=== PATIENT | female | born 1955 | race African-American/Black ===

== ENCOUNTER 2024-06-12 13:26 | Inpatient (IN) | payer MEDICAID, SELFPAY ==
[2024-06-12] VITALS (33 sets, daily range): BP systolic 124–169; BP diastolic 78–98; PULSE 68–120; TEMP 36.7–37.4; O2SAT 91–100; BMI 42.5; BMI 40.5
--- NOTE | 2024-06-12 13:31 | ECG_ITS ---
[facility] Test Date: 2024-06-12 Pat Name: BERTO NOYOLA Department: Room: - Gender: Female Scanning Coordinator: : 1955 Requested By: [id number] Order Number: [id number] Reading MD: SID FRANCOIS M.D. Measurements Intervals [place] Rate: 70 P: 57 WI: 240 QRS: -34 QRSD: 116 T: 90 QT: 396 QTc: 416 Interpretive Statements 1100 Sinus rhythm 2231 First degree AV block 2320 Nonspecific intraventricular conduction delay 4564 Twave abnormality, possible lateral ischemia 7200 Abnormal left axis deviation 9150 abnormal ECG No previous ECG available for comparison Electronically Signed On 06-12-2024 17:48:31 EST by SID FRANCOIS M.D.
--- NOTE | 2024-06-12 13:36 | ED_ITS ---
HPI HPI - General Adult General Chief complaint: Extremity Injury, Lower Stated complaint: weakness Time Seen by Provider: 06/12/24 13:31 Source: patient Mode of arrival: ambulance Limitations: no limitations History of Present Illness HPI narrative: Patient is a 69-year-old female brought to the emergency department by EMS from [place] where she is currently staying with her daughter. She was moved to her daughter's home 1 month ago from the [facility] because the patient was having mobility issues. She had a fall at home about 1 month ago where her feet curled underneath her and she states she has had persistent pain in the feet and legs since the fall. She was never evaluated for the fall and has continued to have difficulty transferring and walking. She states until 3 days ago she was able to manage but for the last several days, she has not been able to walk. She does not believe she hit her head or got knocked out. She is on no blood thinners. She states she takes lisinopril. She has not had any fevers, chest pain, shortness of breath. She reports feeling generally weak. Related Data Home Medications ?Medication ?Instructions ?Recorded ?Confirmed abacavir 600 mg-dolutegravir 50 1 tab PO DAILY 06/12/24 06/12/24 mg-lamivudine 300 mg tablet (Triumeq) acetaminophen 325 mg tablet (Pain 650 mg PO BID PRN pain 06/12/24 06/12/24 Reliever (acetaminophen)) aspirin 81 mg capsule 81 mg PO DAILY 06/12/24 06/12/24 carvedilol 3.125 mg tablet 3.125 mg PO BID 06/12/24 06/12/24 cholecalciferol (vitamin D3) 50 50 mcg PO DAILY 06/12/24 06/12/24 mcg (2,000 unit) capsule (Vitamin D3) furosemide 20 mg tablet 20 mg PO DAILY 06/12/24 06/12/24 gabapentin 300 mg capsule 300 mg PO TID 06/12/24 06/12/24 losartan 50 mg tablet (Cozaar) 25 mg PO DAILY 06/12/24 06/12/24 melatonin 10 mg capsule 10 mg PO BEDTIME 06/12/24 06/12/24 omeprazole 20 mg capsule,delayed 20 mg PO DAILY 06/12/24 06/12/24 release pravastatin 80 mg tablet 80 mg PO DAILY 06/12/24 06/12/24 spironolactone 25 mg tablet 25 mg PO DAILY 06/12/24 06/12/24 (Aldactone) Allergies Allergy/AdvReac Type Severity Reaction Status Date / Time sulfamethoxazole (From Allergy Severe Hives Verified 06/12/24 13:34 Bactrim) trimethoprim (From Bactrim) Allergy Severe Hives Verified 06/12/24 13:34 Opioid HPI Opioid Management Most Recent Opioid Data: No Data to Display Review of Systems ROS Constitutional Denies: fever or chills Ears, nose, mouth, and throat Denies: throat pain or nasal congestion Cardiovascular Denies: chest pain Respiratory Denies: shortness of breath Gastrointestinal Denies: nausea or vomiting Integumentary/Breast Denies: rash Neurological Reports: weakness in extremities; Denies: headache, numbness in extremities or dizziness Hematologic/Lymphatic Denies: easy bruising or easy bleeding PFSH PFS Social History Little interest or pleasure in doing things: not at all Feeling down, depressed, or hopeless: not at all Exam Narrative Exam Narrative: Gen.: Awake, alert, in no distress Head: Normocephalic, atraumatic ENT: Moist mucous membranes Respiratory: No respiratory distress, lungs clear bilaterally Cardio: Regular rate and rhythm Gastrointestinal: Abdomen is soft, nondistended and nontender to palpation, pelvis is stable Extremities: Limited movement of the lower extremities, legs are symmetric with no redness or open wounds. Diffuse tenderness of the legs with no bony point tenderness or obvious deformity. Psych: Normal mood and affect Neuro: No focal neuro deficit Skin: Warm, dry, intact Constitutional Vital Signs, click to edit/add: Last Vital Signs Temp 99.4 F 06/12/24 13:30 Pulse 74 06/12/24 16:15 Resp 29 H 06/12/24 16:15 BP 142/78 H 06/12/24 16:15 Pulse Ox 93 L 06/12/24 16:15 O2 Del Method Room Air 06/12/24 14:40 Course Vital Signs Vital signs: Vital Signs Temperature 99.4 F 06/12/24 13:30 Pulse Rate 76 06/12/24 13:30 Respiratory Rate 20 06/12/24 13:30 Blood Pressure 169/98 H 06/12/24 13:30 Pulse Oximetry 95 06/12/24 13:30 Oxygen Delivery Method Room Air 06/12/24 13:30 Temperature 99.4 F 06/12/24 13:30 Pulse Rate 74 06/12/24 16:15 Respiratory Rate 29 H 06/12/24 16:15 Blood Pressure 142/78 H 06/12/24 16:15 Pulse Oximetry 93 L 06/12/24 16:15 Oxygen Delivery Method Room Air 06/12/24 14:40 Medical Decision Making MDM Narrative Medical decision making narrative: Labs obtained, urine specimen obtained with mildly elevated BUN but no other acute process noted. CT of the brain, CT of the pelvis, x-rays of the bilateral femurs, tib-fib and feet with no evidence of acute process. Case discussed with Dr. Hastings for admission as the patient is having increasing difficulty with mobility, frequent falls and is unable to bear weight. She was given some IV fluids, [place] and gabapentin for pain. Additional CT of the lumbar spine with no evidence of acute process, degenerative changes and chronic stenosis noted. Patient is resting comfortably on reevaluation. She is admitted to the hospitalist for possible placement as she may need a rehab stay and cannot safely go home at this time. While on cardiac monitoring and waiting for results, she was noted to have an episode of possible rapid A-fib that resolved immediately and she had no episodes of chest pain or shortness of breath SUPERVISED APC VISIT, PHYSICIAN ATTESTATION: Based on the medical record the care appears appropriate. ? Medical Records Medical records reviewed: Yes I reviewed the patient's medical records Lab Data Lab results reviewed: Yes I reviewed the patient's lab results Labs: Lab Results 06/12/24 06/12/24 Range/Units 13:43 14:26 WBC 7.1 (4.0-11.0) 10^3/uL RBC 4.04 L (4.20-5.40) 10^6/uL Hgb 11.3 L (12.0-16.0) g/dL Hct 35.5 L (36.0-48.0) % MCV 87.9 (81.0-99.0) fL MCH 28.0 (26.7-34.0) pg MCHC 31.8 (29.9-35.2) g/dL RDW 17.1 H (11.0-15.0) % Plt Count 204 (150-450) 10^3/uL MPV 10.6 (9.5-13.5) fL Neut % (Auto) 32.9 L (43.0-75.0) % Lymph % (Auto) 55.2 (20.5-60.0) % [place] % (Auto) 8.3 (1.7-12.0) % Eos % (Auto) 3.1 (0.9-7.0) % Baso % (Auto) 0.4 (0.2-2.0) % Neut # (Auto) 2.3 (1.4-6.5) 10^3/uL Lymph # (Auto) 3.9 H (1.2-3.8) 10^3/uL [place] # (Auto) 0.6 (0.3-0.8) 10^3/uL Eos # (Auto) 0.2 (0.0-0.7) 10^3/uL Baso # (Auto) 0.0 (0.0-0.1) 10^3/uL Abs Immat Gran (auto) 0.01 (0.00-0.03) 10^3/uL Imm/Tot Granulo (auto) 0.1 (0.0-0.5) % PT 11.3 (9.0-11.6) sec INR 1.07 VBG pH 7.390 (7.330-7.430) VBG pCO2 47.0 (40.0-52.0) mmHg Sodium 138 (136-145) mmol/L Potassium 4.3 (3.5-5.1) mmol/L Chloride 104 (98-107) mmol/L Carbon Dioxide 28.5 (21.0-32.0) mmol/L Anion Gap 9.8 BUN 23.0 H (7.0-18.0) mg/dL Creatinine 0.56 (0.55-1.02) mg/dL Est GFR ( Amer) >60 (>=60 mL/min/1.73m^2) Est GFR (Non-Af Amer) >60 (>=60 mL/min/1.73m^2) BUN/Creatinine Ratio 41.1 Glucose 95 (74-106) mg/dL Lactate 1.2 (0.4-2.0) mmol/L Calcium 9.9 (8.5-10.1) mg/dL Magnesium 1.9 (1.8-2.4) mg/dL Total Bilirubin 1.0 (0.2-1.0) mg/dL AST 55 H (15-37) U/L ALT 45 (14-59) U/L Alkaline Phosphatase 52 (46-116) U/L Troponin I High Sens 30.2 (4.0-51.3) pg/mL Total Protein 9.1 H (6.4-8.2) g/dL Albumin 3.6 (3.4-5.0) g/dL Globulin 5.5 g/dL Albumin/Globulin Ratio 0.7 TSH 1.461 (0.358-3.740) uIU/mL Urine Color Lt. yellow (YELLOW) Urine Clarity Clear (CLEAR) Urine pH 7.0 (5.0-9.0) Ur Specific [place] 1.015 (1.005-1.025) Urine Protein Trace (NEG/TRACE) mg/dL Urine Glucose (UA) Negative (NEGATIVE) mg/dL Urine Ketones Negative (NEGATIVE) mg/dL Urine Occult Blood Trace-i (NEGATIVE) Urine Nitrite Negative (NEGATIVE) Urine Bilirubin Negative (NEGATIVE) Urine Urobilinogen 0.2 (0.2-1.0) EU/dL Ur Leukocyte Esterase Negative (NEGATIVE) Urine RBC 0-2 (0-2) #/HPF Urine WBC None seen (NONE SEEN) #/HPF Ur Squamous Epith Cells Few A (NONE/RARE) #/LPF Urine Bacteria None seen (NONE SEEN) #/HPF Urine Mucus None seen (NONE SEEN) Ur Culture Indicated? No Imaging Data CT scan - head: Attestation: I personally reviewed and interpreted this imaging study as follows: ECG Data Attestation: I personally reviewed and interpreted this ECG as follows: (Normal sinus rhythm at a rate of 74, first-degree AV block with no acute ST elevation or ectopy. EKG reviewed by attending physician.) Discharge Plan Discharge Chief Complaint: Extremity Injury, Lower Patient Disposition: Admitted as Observation Time of Disposition Decision: 17:33 Prescriptions / Home Meds: No Action acetaminophen [Pain Reliever (acetaminophen)] 325 mg tablet 650 mg PO BID PRN (Reason: pain) aspirin 81 mg capsule 81 mg PO DAILY carvedilol 3.125 mg tablet 3.125 mg PO BID Rx Instructions: must administer with a meal/food furosemide 20 mg tablet 20 mg PO DAILY gabapentin 300 mg capsule 300 mg PO TID losartan [Cozaar] 50 mg tablet 25 mg PO DAILY omeprazole 20 mg capsule,delayed release(DR/EC) 20 mg PO DAILY pravastatin 80 mg tablet 80 mg PO DAILY spironolactone [Aldactone] 25 mg tablet 25 mg PO DAILY Triumeq 600-50-300 mg tablet 1 tab PO DAILY cholecalciferol (vitamin D3) [Vitamin D3] 50 mcg (2,000 unit) capsule 50 mcg PO DAILY melatonin 10 mg capsule 10 mg PO BEDTIME Print Language: Martiniquais Referrals: Physician,Non-Staff, MD [Primary Care Provider] - 1 week
[2024-06-12 13:51] LABS: Basophils Percent Auto 0.4 % (0.2-2.0); Eosinophils Absolute Auto 0.2 10^3/uL (0.0-0.7); Eosinophils Percent Auto 3.1 % (0.9-7.0); Hematocrit 35.5 % (36.0-48.0); Hemoglobin 11.3 g/dL (12.0-16.0); Immature Granulocytes Abs Auto 0.01 10^3/uL (0.00-0.03); Immature Granulocytes Pct Auto 0.1 % (0.0-0.5); Lymphocytes Absolute Auto 3.9 10^3/uL (1.2-3.8); Lymphocytes Percent Auto 55.2 % (20.5-60.0); Mean Corpuscular HGB Conc 31.8 g/dL (29.9-35.2); Mean Corpuscular Volume 87.9 fL (81.0-99.0); Mean Platelet Volume 10.6 fL (9.5-13.5); Monocytes Absolute Auto 0.6 10^3/uL (0.3-0.8); Monocytes Percent Auto 8.3 % (1.7-12.0); Neutrophils Absolute Auto 2.3 10^3/uL (1.4-6.5); Neutrophils Percent Auto 32.9 % (43.0-75.0); Platelet Count 204 10^3/uL (150-450); Red Blood Count 4.04 10^6/uL (4.20-5.40); Red Cell Distribution Width 17.1 % (11.0-15.0); White Blood Count 7.1 10^3/uL (4.0-11.0)
--- NOTE | 2024-06-12 13:51 | PC.NURSE ---
bilat leg pain that pt reports unable to ambulate. unable to meat pickler legs and states family had to lower her to ground at home while trying to get pt on BSC today.
[2024-06-12 14:03] LABS: INR 1.07; Prothrombin Time 11.3 sec (9.0-11.6)
[2024-06-12 14:05] LABS: Alanine Aminotransferase 45 U/L (14-59); Albumin Globulin Ratio 0.7; Albumin Level 3.6 g/dL (3.4-5.0); Alkaline Phosphatase 52 U/L (46-116); Anion Gap 9.8; Aspartate Amino Transferase 55 U/L (15-37); BUN Creatinine Ratio 41.1; Calcium 9.9 mg/dL (8.5-10.1); Carbon Dioxide 28.5 mmol/L (21.0-32.0); Chloride 104 mmol/L (98-107); Estimated GFR (African America >60 (>=60 mL/min/1.73m^2); Estimated GFR (Non-African Ame >60 (>=60 mL/min/1.73m^2); Globulin 5.5 g/dL; Glucose 95 mg/dL (74-106); Potassium 4.3 mmol/L (3.5-5.1); Sodium 138 mmol/L (136-145); Total Protein 9.1 g/dL (6.4-8.2)
[2024-06-12 14:07] LABS: Lactate/Lactic Acid 1.2 mmol/L (0.4-2.0)
[2024-06-12 14:13] LABS: Magnesium 1.9 mg/dL (1.8-2.4); Thyroid Stimulating Hormone 1.461 uIU/mL (0.358-3.740); Troponin I High Sensitivity 30.2 pg/mL (4.0-51.3)
[2024-06-12] MEDS: HYDROCODONE/ACET 5-325 MG TABLET 1 TAB PO (14:29)
[2024-06-12] MEDS: GABAPENTIN 100 MG CAPSULE PO (14:31)
[2024-06-12] MEDS: 0.9 % SODIUM CHLORIDE 1,000 ML 250 ML IV (14:31)
[2024-06-12 14:40] LABS: Bilirubin Urine NEGATIVE (NEGATIVE); Blood Urine TRACE-I (NEGATIVE); Clarity Urine CLEAR (CLEAR); Color Urine LT. YELLOW (YELLOW); Glucose Urine UA NEGATIVE (NEGATIVE); Ketones Urine NEGATIVE (NEGATIVE); Leukocyte Esterase Urine NEGATIVE (NEGATIVE); Nitrite Urine NEGATIVE (NEGATIVE); Protein Urine TRACE mg/dL (NEG/TRACE); Specific Gravity Urine 1.015 (1.005-1.025); Urobilinogen Urine 0.2 EU/dL (0.2-1.0)
--- NOTE | 2024-06-12 15:00 | SWNOTE1 ---
SW received call from Carli noe in ED. Pt was going to be admitted, unsure of dc needs. SW looked over chart and pt does have Medicaid and from charting looks like she lives with daughter.
[2024-06-12 15:01] LABS: Bacteria Urine NONE SEEN #/HPF (NONE SEEN); Mucus Urine NONE SEEN (NONE SEEN); RBC Urine 0-2 #/HPF (0-2); Squamous Epithelial Cell Urine FEW #/LPF (NONE/RARE); WBC Urine NONE SEEN #/HPF (NONE SEEN)
[2024-06-12 15:02] LABS: Urine Culture Indicated NO
--- NOTE | 2024-06-12 18:15 | P.HP_ITS ---
HPI H&P: HPI History of Present Illness Chief complaint: weakness Narrative: Patient presented to the emergency room with increasing weakness especially in her lower extremities she has had some longstanding weakness of her left hand for over a year, uncertain etiology, workup in the ER unremarkable other than appears to be a little bit dehydrated with elevated BUN, low-grade fevers 99-1/2 patient is a taking medications will be consistent with HIV When I saw patient in the emergency room, resting comfortably in bed, her only complaint was the weakness in her lower extremities, she also does states she has a little bit of a head congestion and cough Opioid HPI Opioid Management Most Recent Pain and Opioid Data: No Data to Display Review of Systems ROS Status of ROS 10 or more systems reviewed and unremark able except as noted in history and below PFSH [facility] Medical History (Updated 06/12/24 @ 17:50 by Arabella Killian) HIV (human immunodeficiency virus infection) ?Z21 - Asymptomatic human immunodeficiency virus [HIV] infection status (ICD- 10) Asthma ?J45.909 - Unspecified asthma, uncomplicated (ICD-10) HTN (hypertension) ?I10 - Essential (primary) hypertension (ICD-10) Social History Little interest or pleasure in doing things: not at all Feeling down, depressed, or hopeless: not at all Meds Home Medications and Allergies Home Medications ?Medication ?Instructions ?Recorded ?Confirmed ?Type abacavir 600 mg-dolutegravir 50 1 tab PO DAILY 06/12/24 06/12/24 History mg-lamivudine 300 mg tablet (Triumeq) acetaminophen 325 mg tablet (Pain 650 mg PO BID PRN pain 06/12/24 06/12/24 History Reliever (acetaminophen)) aspirin 81 mg capsule 81 mg PO DAILY 06/12/24 06/12/24 History carvedilol 3.125 mg tablet 3.125 mg PO BID 06/12/24 06/12/24 History cholecalciferol (vitamin D3) 50 50 mcg PO DAILY 06/12/24 06/12/24 History mcg (2,000 unit) capsule (Vitamin D3) furosemide 20 mg tablet 20 mg PO DAILY 06/12/24 06/12/24 History gabapentin 300 mg capsule 300 mg PO TID 06/12/24 06/12/24 History losartan 50 mg tablet (Cozaar) 25 mg PO DAILY 06/12/24 06/12/24 History melatonin 10 mg capsule 10 mg PO BEDTIME 06/12/24 06/12/24 History omeprazole 20 mg capsule,delayed 20 mg PO DAILY 06/12/24 06/12/24 History release pravastatin 80 mg tablet 80 mg PO DAILY 06/12/24 06/12/24 History spironolactone 25 mg tablet 25 mg PO DAILY 06/12/24 06/12/24 History (Aldactone) Allergies Allergy/AdvReac Type Severity Reaction Status Date / Time sulfamethoxazole (From Allergy Severe Hives Verified 06/12/24 13:34 Bactrim) trimethoprim (From Bactrim) Allergy Severe Hives Verified 06/12/24 13:34 Exam Constitutional Vital Signs, click to edit/add: Last Vital Signs Temp 99.4 F 06/12/24 13:30 Pulse 82 06/12/24 18:01 Resp 23 H 06/12/24 18:01 BP 145/87 H 06/12/24 18:01 Pulse Ox 100 06/12/24 17:30 O2 Del Method Room Air 06/12/24 14:40 Documenting provider has reviewed patient's vital signs: yes Common normals: no apparent distress Respiratory Common normals: normal respiratory effort and no use of accessory muscles; not clear to ascultation bilaterally Auscultation: rhonchi (Rhonchi versus atelectasis right lower lobe) Cardio Common normals: regular rate and regular rhythm GI Common normals: Normal to inspection, nondistended, normoactive bowel sounds present Neuro Common normals: CN's II-XII intact bilaterally and moves all extremities (Can only raise legs off the bed) Other: Decreased telepathist strength left hand which she states has been for a year Results Labs Labs: Short CBC 06/12/24 Range/Units 13:43 WBC 7.1 (4.0-11.0) 10^3/uL Hgb 11.3 L (12.0-16.0) g/dL Hct 35.5 L (36.0-48.0) % Plt Count 204 (150-450) 10^3/uL BMP 06/12/24 13:43 Sodium 138 Potassium 4.3 Chloride 104 Carbon Dioxide 28.5 BUN 23.0 H Creatinine 0.56 Glucose 95 Calcium 9.9 Liver Function 06/12/24 Range/Units 13:43 Total Bilirubin 1.0 (0.2-1.0) mg/dL AST 55 H (15-37) U/L ALT 45 (14-59) U/L Alkaline Phosphatase 52 (46-116) U/L Albumin 3.6 (3.4-5.0) g/dL Urine 06/12/24 Range/Units 14:26 Urine Color Lt. yellow (YELLOW) Urine Clarity Clear (CLEAR) Urine pH 7.0 (5.0-9.0) Ur Specific [place] 1.015 (1.005-1.025) Urine Protein Trace (NEG/TRACE) mg/dL Urine Glucose (UA) Negative (NEGATIVE) mg/dL ABG ABG results: 06/12/24 13:43 VBG pH 7.390 VBG pCO2 47.0 Assessment and Plan Assessment and Plan (1) Mild dehydration: (2) Generalized weakness: (3) Frequent falls: (4) HTN (hypertension): (5) Asthma: (6) HIV (human immunodeficiency virus infection): Plan Admission findings: Low-grade fever 99-1/2, respiratory distress, uncontrolled high blood pressure, elevated BUN consistent with dehydration, cough consistent with possible early pneumonia and changes on x-ray consistent with possible right lower lobe pneumonia in a patient with immune deficiency based on HIV status Changes consistent with right lower lobe pneumonia-IV antibiotics, aerosol treatments, try to obtain sputum culture Weakness in lower extremity CT scan shows arthritic changes, no compression fractures, continued workup for lower extremity weakness ongoing Left hand weakness-this been over a year HIV status-maintain home medications Uncontrolled hypertension-maintain current medications and adjust as necessary Peripheral neuropathy-continue with gabapentin GERD continue with home medications Hypercholesterolemia continue with home medications Admission status: Patient with frequent falls, this has been worked up as an outpatient without success, does have changes consistent with right lower lobe pneumonia, medically necessary treatment will span 2 midnights. Inpatient status Urinary Catheter Management Urinary Catheter Management Straight: Cath placed during this visit: yes Urethral indwelling: No Insertion date: 06/12/24 Insertion time: 14:39
[2024-06-12] MEDS: ALBUTEROL SULFATE 2.5 MG/3 ML VIAL NEB IH (20:08)
[2024-06-12] MEDS: LEVOFLOXACIN IN DEXTROSE 5 % 750 MG/150 ML PREMIX 100 MG IV (20:08)
[2024-06-12] MEDS: CARVEDILOL 3.125 MG TABLET PO (20:09)
[2024-06-12] MEDS: POLYETHYLENE GLYCOL 3350 17 GM POWDER PACKET PO (20:09)
[2024-06-12] MEDS: DEXAMETHASONE SOD PHOS 10 MG/ML VIAL IV (20:09)
[2024-06-12] MEDS: LACTATED RINGER'S SOLUTION 1,000 ML 100 ML IV (20:09)
[2024-06-12 21:21] LABS: Influenza Virus A Antigen Negative; Influenza Virus B Antigen Negative; Internal Control Within Normal Limits
[2024-06-12 21:22] LABS: Internal Control Within Normal Limits; SARS-CoV-2 Ag NEGATIVE (NEGATIVE)
[2024-06-12] MEDS: GABAPENTIN 300 MG CAPSULE PO (21:25)
[2024-06-12] MEDS: TRAZODONE HCL 50 MG TABLET 25 MG PO (21:25)
[2024-06-12] MEDS: ACETAMINOPHEN 325 MG TABLET 650 MG PO (22:44)
[2024-06-13] VITALS (19 sets, daily range): BP systolic 153–163; BP diastolic 84–91; PULSE 71–90; TEMP 36.7–37.1; O2SAT 93–97
[2024-06-13] MEDS: GABAPENTIN 300 MG CAPSULE PO (06:10)
[2024-06-13 06:57] LABS: Basophils Percent Auto 0.2 % (0.2-2.0); Eosinophils Percent Auto 0.2 % (0.9-7.0); Hematocrit 34.6 % (36.0-48.0); Hemoglobin 10.9 g/dL (12.0-16.0); Immature Granulocytes Abs Auto 0.02 10^3/uL (0.00-0.03); Immature Granulocytes Pct Auto 0.4 % (0.0-0.5); Lymphocytes Absolute Auto 1.8 10^3/uL (1.2-3.8); Lymphocytes Percent Auto 36.5 % (20.5-60.0); Mean Corpuscular HGB Conc 31.5 g/dL (29.9-35.2); Mean Corpuscular Hemoglobin 27.5 pg (26.7-34.0); Mean Corpuscular Volume 87.4 fL (81.0-99.0); Mean Platelet Volume 11.1 fL (9.5-13.5); Monocytes Absolute Auto 0.2 10^3/uL (0.3-0.8); Neutrophils Percent Auto 59.7 % (43.0-75.0); Platelet Count 202 10^3/uL (150-450); Red Blood Count 3.96 10^6/uL (4.20-5.40); Red Cell Distribution Width 16.9 % (11.0-15.0)
[2024-06-13 07:12] LABS: Anion Gap 9.4; BUN Creatinine Ratio 39.6; Calcium 9.7 mg/dL (8.5-10.1); Chloride 104 mmol/L (98-107); Estimated GFR (African America >60 (>=60 mL/min/1.73m^2); Estimated GFR (Non-African Ame >60 (>=60 mL/min/1.73m^2); Glucose 112 mg/dL (74-106); Magnesium 1.8 mg/dL (1.8-2.4); Potassium 4.4 mmol/L (3.5-5.1); Sodium 137 mmol/L (136-145)
[2024-06-13] MEDS: LACTATED RINGER'S SOLUTION 1,000 ML 100 ML IV (07:35)
[2024-06-13] MEDS: OMEPRAZOLE 20 MG CAPSULE.DR PO (10:09)
[2024-06-13] MEDS: LOSARTAN POTASSIUM 50 MG TABLET 25 MG PO (10:09)
[2024-06-13] MEDS: ACETAMINOPHEN 325 MG TABLET 650 MG PO ×2 (10:10→21:10)
[2024-06-13] MEDS: CARVEDILOL 3.125 MG TABLET PO ×2 (10:10→21:09)
[2024-06-13] MEDS: ATORVASTATIN CALCIUM 20 MG TABLET PO (10:10)
[2024-06-13] MEDS: ASPIRIN 81 MG TAB.CHEW PO (10:10)
[2024-06-13] MEDS: CHOLECALCIFEROL (VITAMIN D3) 25 MCG/1,000 UNITS TABLET 50 MCG PO (10:10)
[2024-06-13] MEDS: HYOSCYAMINE SULFATE 0.125 MG TAB.SUBL SL (10:10)
[2024-06-13] MEDS: ABACAVIR DOLUTEGRAVIR LAMIVUD PO (10:14)
--- NOTE | 2024-06-13 12:37 | P.IMPN_ITS ---
Progress Note: A&P Assessment and Plan (1) Right lower lobe pneumonia: Assessment and Plan: On IV Levaquin. Follow-up sputum cultures. Continue with same. Patient is a still symptomatic and short breath at rest Qualifiers: Pneumonia type: due to unspecified organism Qualified Code(s): J18.9 - Pneumonia, unspecified organism (2) Asthma: Assessment and Plan: Started patient on IV Solu-Medrol along with DuoNebs. Exacerbation likely secondary to pneumonia Qualifiers: Asthma severity: unspecified severity Asthma persistence: intermittent Asthma complication type: with acute exacerbation Qualified Code(s): J45.21 - Mild intermittent asthma with (acute) exacerbation (3) Mild dehydration: Assessment and Plan: DC IV fluids. (4) Generalized weakness: Assessment and Plan: PT/OT eval (5) Frequent falls: Assessment and Plan: Patient had been living by herself, was ambulating using a walker but for past 1 to 2 weeks, she has been more or less bedbound with inability to walk, stand on her feet. She has bilateral lower extremity weakness that is symmetrical with no numbness except in her feet. She has not seen a neurologist. She had a CT lumbar spine that did not reveal any acute finding. PT/OT evaluation. (6) HTN (hypertension): Assessment and Plan: Continue with blood pressure medications. Blood pressure above goal. IV hydralazine as needed Qualifiers: Hypertension type: primary hypertension Qualified Code(s): I10 - Essential (primary) hypertension (7) HIV (human immunodeficiency virus infection): Assessment and Plan: Patient is on Triumeq. She reports that her viral load is suppressed based on labs about 2 months. Qualifiers: HIV symptom status: unspecified Qualified Code(s): Z21 - Asymptomatic human immunodeficiency virus [HIV] infection status (8) Peripheral neuropathy: Assessment and Plan: Bilateral lower extremity weakness with numbness in her feet. Check B12, folate. Pain is poorly controlled and gabapentin does not work. Switch to Lyrica 75 twice daily. Qualifiers: Peripheral neuropathy type: polyneuropathy, unspecified Qualified Code(s): G62.9 - Polyneuropathy, unspecified Plan Patient is continued inpatient treatment of pneumonia because she is still symptomatic and short of breath at rest. On IV Levaquin. She is at high risk of resistant organisms because of her HIV. She has generalized weakness and inability to walk with her brother rapid decline in her functional status. She has numbness in her feet and bilateral lower extremity weakness. Her symptoms are symmetrical. No acute finding on CT lumbar spine. Apparently, just a few weeks ago, she was living by herself and was able to use a walker. She has been having frequent falls and most recently, [facility] [place] Will get neurology on board to rule out HIV related/associated neurological illness that may be responsible for her symptoms. Continue with PT/OT evaluation. She will need SNF when she is medically stable for discharge. Internal Medicine - PN: Subj Subjective Interval history: Seen and examined. Patient reports poor sleep because she did not get he melatonin. She reports her feet hurt and gabapentin is not working. She appears SOB during conversation with mild tachypnea noted. Exam Constitutional Vital Signs, click to edit/add: Last Vital Signs Temp 98.7 F 06/13/24 07:29 Pulse 86 06/13/24 11:54 Resp 20 06/13/24 07:29 BP 163/91 H 06/13/24 07:29 Pulse Ox 97 06/13/24 07:29 O2 Del Method Room Air 06/13/24 07:29 Documenting provider has reviewed patient's vital signs: yes Common normals: no apparent distress and oriented x3 General appearance: cooperative Respiratory Common normals: normal respiratory effort Effort & inspection: tachypneic Auscultation: wheezes and diminished lung sounds Other: Appears SOB at rest Cardio Common normals: regular rate, S1 normal heart sound and S2 normal heart sound Rate: regular rate Heart sounds: S1 normal and S2 normal GI Common normals: Normal to inspection, nondistended, normoactive bowel sounds present, soft to palpation, non-tender and no hepatosplenomegaly Palpation: soft and no hepatosplenomegaly Extremity Common normals: no clubbing, cyanosis or edema Neuro Common normals: oriented x3 and moves all extremities Other: Patient with b/l LE weakness, unable to lift her feet up against gravity. Psych Common normals: mental status grossly normal, denies hallucinations, denies homicidal ideation and denies suicidal ideation Internal Medicine - PN: Obj Da Labs Labs: Laboratory Results - last 24 hr 06/12/24 06/12/24 06/12/24 13:43 14:26 20:53 WBC 7.1 RBC 4.04 L Hgb 11.3 L Hct 35.5 L MCV 87.9 MCH 28.0 MCHC 31.8 RDW 17.1 H Plt Count 204 MPV 10.6 Neut % (Auto) 32.9 L Lymph % (Auto) 55.2 [place] % (Auto) 8.3 Eos % (Auto) 3.1 Baso % (Auto) 0.4 Neut # (Auto) 2.3 Lymph # (Auto) 3.9 H [place] # (Auto) 0.6 Eos # (Auto) 0.2 Baso # (Auto) 0.0 Abs Immat Gran (auto) 0.01 Imm/Tot Granulo (auto) 0.1 PT 11.3 INR 1.07 VBG pH 7.390 VBG pCO2 47.0 Sodium 138 Potassium 4.3 Chloride 104 Carbon Dioxide 28.5 Anion Gap 9.8 BUN 23.0 H Creatinine 0.56 Est GFR ( Amer) >60 Est GFR (Non-Af Amer) >60 BUN/Creatinine Ratio 41.1 Glucose 95 Lactate 1.2 Calcium 9.9 Magnesium 1.9 Total Bilirubin 1.0 AST 55 H ALT 45 Alkaline Phosphatase 52 Troponin I High Sens 30.2 NT-Pro-B Natriuret Pep 167.0 Total Protein 9.1 H Albumin 3.6 Globulin 5.5 Albumin/Globulin Ratio 0.7 TSH 1.461 Urine Color Lt. yellow Urine Clarity Clear Urine pH 7.0 Ur Specific [place] 1.015 Urine Protein Trace Urine Glucose (UA) Negative Urine Ketones Negative Urine Occult Blood Trace-i Urine Nitrite Negative Urine Bilirubin Negative Urine Urobilinogen 0.2 Ur Leukocyte Esterase Negative Urine RBC 0-2 Urine WBC None seen Ur Squamous Epith Cells Few A Urine Bacteria None seen Urine Mucus None seen Ur Culture Indicated? No Influenza Type A Ag Negative Influenza Type B Ag Negative SARS-CoV-2 Ag (CV2AG) Negative 06/13/24 06:20 WBC 5.0 RBC 3.96 L Hgb 10.9 L Hct 34.6 L MCV 87.4 MCH 27.5 MCHC 31.5 RDW 16.9 H Plt Count 202 MPV 11.1 Neut % (Auto) 59.7 Lymph % (Auto) 36.5 [place] % (Auto) 3.0 Eos % (Auto) 0.2 L Baso % (Auto) 0.2 Neut # (Auto) 3.0 Lymph # (Auto) 1.8 [place] # (Auto) 0.2 L Eos # (Auto) 0.0 Baso # (Auto) 0.0 Abs Immat Gran (auto) 0.02 Imm/Tot Granulo (auto) 0.4 PT INR VBG pH VBG pCO2 Sodium 137 Potassium 4.4 Chloride 104 Carbon Dioxide 28.0 Anion Gap 9.4 BUN 19.0 H Creatinine 0.48 L Est GFR ( Amer) >60 Est GFR (Non-Af Amer) >60 BUN/Creatinine Ratio 39.6 Glucose 112 H Lactate Calcium 9.7 Magnesium 1.8 Total Bilirubin AST ALT Alkaline Phosphatase Troponin I High Sens NT-Pro-B Natriuret Pep Total Protein Albumin Globulin Albumin/Globulin Ratio TSH Urine Color Urine Clarity Urine pH Ur Specific [place] Urine Protein Urine Glucose (UA) Urine Ketones Urine Occult Blood Urine Nitrite Urine Bilirubin Urine Urobilinogen Ur Leukocyte Esterase Urine RBC Urine WBC Ur Squamous Epith Cells Urine Bacteria Urine Mucus Ur Culture Indicated? Influenza Type A Ag Influenza Type B Ag SARS-CoV-2 Ag (CV2AG) Urinary Catheter Management Urinary Catheter Management Straight: Cath placed during this visit: yes Urethral indwelling: No Insertion date: 06/12/24 Insertion time: 23:15 Pure [place]: Cath placed during this visit: no
[2024-06-13] MEDS: METHYLPREDNISOLONE SOD SUCC PF 40 MG/ML VIAL IVP ×2 (13:28→21:09)
[2024-06-13] MEDS: ALBUTEROL SULFATE 2.5 MG/3 ML VIAL NEB IH ×2 (15:59→20:15)
[2024-06-13] MEDS: DOCUSATE SODIUM 100 MG CAPSULE PO (18:11)
[2024-06-13] MEDS: TRAZODONE HCL 50 MG TABLET 25 MG PO (21:09)
[2024-06-13] MEDS: LEVOFLOXACIN IN DEXTROSE 5 % 750 MG/150 ML PREMIX 100 MG IV (21:09)
[2024-06-13] MEDS: PREGABALIN 75 MG CAPSULE PO (21:09)
[2024-06-13] MEDS: NON-FORMULARY 1 EACH (Melatonin 10 mg capsule) 10 EACH PO (21:13)
[2024-06-14] VITALS (16 sets, daily range): BP systolic 132–161; BP diastolic 72–89; PULSE 57–78; TEMP 36.4–36.6; O2SAT 93–96
[2024-06-14] MEDS: METHYLPREDNISOLONE SOD SUCC PF 40 MG/ML VIAL IVP ×2 (04:59→21:02)
[2024-06-14 06:34] LABS: Basophils Percent Auto 0.2 % (0.2-2.0); Hematocrit 34.1 % (36.0-48.0); Hemoglobin 10.5 g/dL (12.0-16.0); Immature Granulocytes Abs Auto 0.04 10^3/uL (0.00-0.03); Immature Granulocytes Pct Auto 0.8 % (0.0-0.5); Lymphocytes Absolute Auto 1.6 10^3/uL (1.2-3.8); Lymphocytes Percent Auto 33.1 % (20.5-60.0); Mean Corpuscular HGB Conc 30.8 g/dL (29.9-35.2); Mean Corpuscular Hemoglobin 27.3 pg (26.7-34.0); Mean Corpuscular Volume 88.6 fL (81.0-99.0); Mean Platelet Volume 10.7 fL (9.5-13.5); Monocytes Absolute Auto 0.1 10^3/uL (0.3-0.8); Monocytes Percent Auto 2.4 % (1.7-12.0); Neutrophils Absolute Auto 3.1 10^3/uL (1.4-6.5); Neutrophils Percent Auto 63.5 % (43.0-75.0); Platelet Count 179 10^3/uL (150-450); Red Blood Count 3.85 10^6/uL (4.20-5.40); Red Cell Distribution Width 17.1 % (11.0-15.0)
[2024-06-14 06:59] LABS: Anion Gap 10.4; BUN Creatinine Ratio 34.6; Calcium 9.9 mg/dL (8.5-10.1); Carbon Dioxide 25.9 mmol/L (21.0-32.0); Chloride 105 mmol/L (98-107); Estimated GFR (African America >60 (>=60 mL/min/1.73m^2); Estimated GFR (Non-African Ame >60 (>=60 mL/min/1.73m^2); Glucose 143 mg/dL (74-106); Potassium 4.3 mmol/L (3.5-5.1); Sodium 137 mmol/L (136-145)
[2024-06-14] MEDS: POLYETHYLENE GLYCOL 3350 17 GM POWDER PACKET PO (10:18)
[2024-06-14] MEDS: PREGABALIN 75 MG CAPSULE PO ×2 (10:19→21:03)
[2024-06-14] MEDS: CARVEDILOL 3.125 MG TABLET PO ×2 (10:19→21:04)
[2024-06-14] MEDS: FUROSEMIDE 20 MG TABLET PO (10:19)
[2024-06-14] MEDS: LOSARTAN POTASSIUM 50 MG TABLET 25 MG PO (10:19)
[2024-06-14] MEDS: ATORVASTATIN CALCIUM 20 MG TABLET PO (10:20)
[2024-06-14] MEDS: CHOLECALCIFEROL (VITAMIN D3) 25 MCG/1,000 UNITS TABLET 50 MCG PO (10:20)
[2024-06-14] MEDS: ASPIRIN 81 MG TAB.CHEW PO (10:20)
[2024-06-14] MEDS: OMEPRAZOLE 20 MG CAPSULE.DR PO (10:21)
[2024-06-14] MEDS: ABACAVIR DOLUTEGRAVIR LAMIVUD PO (10:26)
--- NOTE | 2024-06-14 12:09 | P.IMPN_ITS ---
Progress Note: A&P Assessment and Plan (1) Right lower lobe pneumonia: Assessment and Plan: On IV Levaquin. Follow-up cultures. Qualifiers: Pneumonia type: due to unspecified organism Qualified Code(s): J18.9 - Pneumonia, unspecified organism (2) Asthma: Assessment and Plan: Improvement in wheezing and overall respiratory status. Decrease Solu-Medrol to every 12 hours. Continue with DuoNebs as needed. Qualifiers: Asthma severity: unspecified severity Asthma persistence: intermittent Asthma complication type: with acute exacerbation Qualified Code(s): J45.21 - Mild intermittent asthma with (acute) exacerbation (3) Mild dehydration: Assessment and Plan: Discontinue IV fluids. More or less slowly make. (4) Generalized weakness: Assessment and Plan: Patient had been living by herself, was ambulating using a walker but for past 1 to 2 weeks, she has been more or less bedbound with inability to walk, stand on her feet. She has bilateral lower extremity weakness that is symmetrical with no numbness except in her feet. She had a CT lumbar spine that did not reveal any acute finding. PT/OT evaluation. Teleneurology consult placed. (5) Frequent falls: Assessment and Plan: Frequent falls with inability to ambulate. PT/OT evaluation. No acute fracture. Neurology: Elevated and pending (6) HTN (hypertension): Assessment and Plan: Continue with home medications. IV hydralazine as needed Qualifiers: Hypertension type: primary hypertension Qualified Code(s): I10 - Essential (primary) hypertension (7) HIV (human immunodeficiency virus infection): Assessment and Plan: Patient reports that her most recent viral load was undetectable. Continue with Triumeq Qualifiers: HIV symptom status: unspecified Qualified Code(s): Z21 - Asymptomatic human immunodeficiency virus [HIV] infection status (8) Peripheral neuropathy: Assessment and Plan: Switch to Lyrica. Her neuropathic pain in lower extremities is better with Lyrica now. Normal folate. B12 pending. Qualifiers: Peripheral neuropathy type: polyneuropathy, unspecified Qualified Code(s): G62.9 - Polyneuropathy, unspecified Internal Medicine - PN: Subj Subjective Interval history: Seen and examined. Patient reports feeling better. She was able to sleep well last night. She is still short of breath but considerably improved from yesterday. Exam Constitutional Vital Signs, click to edit/add: Last Vital Signs Temp 97.9 F 06/14/24 05:02 Pulse 75 06/14/24 12:00 Resp 16 06/14/24 08:00 BP 161/89 H 06/14/24 10:19 Pulse Ox 96 06/14/24 10:16 O2 Del Method Room Air 06/14/24 10:16 Documenting provider has reviewed patient's vital signs: yes Common normals: no apparent distress and oriented x3 General appearance: cooperative Respiratory Common normals: normal respiratory effort and no use of accessory muscles Effort & inspection: able to speak in complete sentences Auscultation: diminished lung sounds Other: Improved aeration, minimal expiratory wheezing. Cardio Common normals: regular rate, S1 normal heart sound and S2 normal heart sound Rate: regular rate Heart sounds: S1 normal and S2 normal GI Common normals: Normal to inspection, nondistended, normoactive bowel sounds present, soft to palpation, non-tender and no hepatosplenomegaly Palpation: soft and no hepatosplenomegaly Extremity Common normals: no clubbing, cyanosis or edema Neuro Common normals: oriented x3 and moves all extremities Other: Patient with b/l LE weakness, unable to lift her feet up against gravity. Psych Common normals: mental status grossly normal, denies hallucinations, denies homicidal ideation and denies suicidal ideation Internal Medicine - PN: Obj Da Labs Labs: Laboratory Results - last 24 hr 06/14/24 06:15 WBC 5.0 RBC 3.85 L Hgb 10.5 L Hct 34.1 L MCV 88.6 MCH 27.3 MCHC 30.8 RDW 17.1 H Plt Count 179 MPV 10.7 Neut % (Auto) 63.5 Lymph % (Auto) 33.1 [place] % (Auto) 2.4 Eos % (Auto) 0.0 L Baso % (Auto) 0.2 Neut # (Auto) 3.1 Lymph # (Auto) 1.6 [place] # (Auto) 0.1 L Eos # (Auto) 0.0 Baso # (Auto) 0.0 Abs Immat Gran (auto) 0.04 H Imm/Tot Granulo (auto) 0.8 H Sodium 137 Potassium 4.3 Chloride 105 Carbon Dioxide 25.9 Anion Gap 10.4 BUN 18.0 Creatinine 0.52 L Est GFR ( Amer) >60 Est GFR (Non-Af Amer) >60 BUN/Creatinine Ratio 34.6 Glucose 143 H Calcium 9.9 Folate 9.00 Urinary Catheter Management Urinary Catheter Management Straight: Cath placed during this visit: yes Urethral indwelling: No Insertion date: 06/12/24 Insertion time: 23:15 Pure Wick: Cath placed during this visit: yes Urethral indwelling: No Insertion date: 06/12/24 Insertion time: 23:15
--- NOTE | 2024-06-14 17:05 | PC.NURSE ---
inside sales supervisor Stacie spoke with RT to let them know about vital capacity/NIF, they stated that we might not have the equipment to do so, will know when the next shift comes on. Dr. Boyd notified
[2024-06-14] MEDS: LEVOFLOXACIN IN DEXTROSE 5 % 750 MG/150 ML PREMIX 100 MG IV (21:02)
[2024-06-14] MEDS: TRAZODONE HCL 50 MG TABLET 25 MG PO (21:03)
[2024-06-14] MEDS: NON-FORMULARY 1 EACH (Melatonin 10 mg capsule) 10 EACH PO (21:03)
[2024-06-14] MEDS: ACETAMINOPHEN 325 MG TABLET 650 MG PO (21:03)
[2024-06-15] VITALS (14 sets, daily range): BP systolic 110–130; BP diastolic 62–74; PULSE 57–80; TEMP 36.4–36.7; O2SAT 92–95
[2024-06-15 06:01] LABS: Eosinophils Percent Auto 0.2 % (0.9-7.0); Hematocrit 33.7 % (36.0-48.0); Hemoglobin 10.7 g/dL (12.0-16.0); Immature Granulocytes Abs Auto 0.03 10^3/uL (0.00-0.03); Immature Granulocytes Pct Auto 0.6 % (0.0-0.5); Lymphocytes Absolute Auto 2.1 10^3/uL (1.2-3.8); Lymphocytes Percent Auto 41.2 % (20.5-60.0); Mean Corpuscular HGB Conc 31.8 g/dL (29.9-35.2); Mean Corpuscular Hemoglobin 27.9 pg (26.7-34.0); Mean Corpuscular Volume 87.8 fL (81.0-99.0); Mean Platelet Volume 10.9 fL (9.5-13.5); Monocytes Absolute Auto 0.2 10^3/uL (0.3-0.8); Monocytes Percent Auto 4.2 % (1.7-12.0); Neutrophils Absolute Auto 2.7 10^3/uL (1.4-6.5); Neutrophils Percent Auto 53.8 % (43.0-75.0); Platelet Count 175 10^3/uL (150-450); Red Blood Count 3.84 10^6/uL (4.20-5.40); Red Cell Distribution Width 17.2 % (11.0-15.0)
[2024-06-15 06:12] LABS: Anion Gap 13.1; BUN Creatinine Ratio 40.3; Calcium 9.8 mg/dL (8.5-10.1); Carbon Dioxide 25.1 mmol/L (21.0-32.0); Chloride 105 mmol/L (98-107); Estimated GFR (African America >60 (>=60 mL/min/1.73m^2); Estimated GFR (Non-African Ame >60 (>=60 mL/min/1.73m^2); Glucose 159 mg/dL (74-106); Potassium 4.2 mmol/L (3.5-5.1); Sodium 139 mmol/L (136-145)
[2024-06-15] MEDS: ATORVASTATIN CALCIUM 20 MG TABLET PO (09:21)
[2024-06-15] MEDS: ASPIRIN 81 MG TAB.CHEW PO (09:21)
[2024-06-15] MEDS: FUROSEMIDE 20 MG TABLET PO (09:21)
[2024-06-15] MEDS: METHYLPREDNISOLONE SOD SUCC PF 40 MG/ML VIAL IVP (09:21)
[2024-06-15] MEDS: CARVEDILOL 3.125 MG TABLET PO (09:22)
[2024-06-15] MEDS: CHOLECALCIFEROL (VITAMIN D3) 25 MCG/1,000 UNITS TABLET 50 MCG PO (09:22)
[2024-06-15] MEDS: OMEPRAZOLE 20 MG CAPSULE.DR PO (09:22)
[2024-06-15] MEDS: PREGABALIN 75 MG CAPSULE PO (09:22)
[2024-06-15] MEDS: ACETAMINOPHEN 325 MG TABLET 650 MG PO (09:22)
[2024-06-15] MEDS: LOSARTAN POTASSIUM 50 MG TABLET 25 MG PO (09:23)
[2024-06-15] MEDS: ABACAVIR DOLUTEGRAVIR LAMIVUD PO (09:25)
[2024-06-15] MEDS: POLYETHYLENE GLYCOL 3350 17 GM POWDER PACKET PO (09:27)
--- NOTE | 2024-06-15 09:42 | PT.DAILY ---
Physical Therapy Daily Note PT Daily Note/Assess Start: 06/13/24 11:25 Freq: Status: Active Protocol: Document 06/15/24 09:37 MILDRED (Rec: 06/15/24 09:42 MILDRED [id number]) Physical Therapy Daily Note/Assessment Time In/Time Out Time In 09:05 Time Out 09:20 Pain In Pain N/A Pain Out Pain N/A Subjective Subjective pt sitting EOB with OT upon arrival - finishing their treatment. Agrees to PT immediately after. Therapeutic Exercise Time Therapeutic Exercise 8 Minutes (minutes) Therapeutic Exercise 1 Units Therapeutic Exercise Treatment Therapeutic Exercise Pt performs bilat LE strengthening ex while sitting EOB Treatment with 1 UE support to maintain upright posture - tends to lean to R when without support. Pt requires increased time to complete ex due to slow pace but able to complete ex asked of her with very little assistance on L side (with marching) Therapeutic Activity Time Therapeutic Activity 5 Minutes (minutes) Therapeutic Activity 0 Units Therapeutic Activity Treatment Bed Mobility Ability Maximum Assist Therapeutic Activity Pt sits EOB 10 min total with 1 UE to maintain upright Comments posture - tends to lean to R when without support. Pt does not require outside support at this time. Pt completes seated ex with minimal assistance for marching. Pt attempts to scoot lateral to R up side of bed - MaxA on bed pad to assist. Sit>supine MaxA for LEs. Total assist of 2 to scoot pt up in bed. Pts left with HOB elevated, pillows under LEs, call light within reach and bed alarm activated. Total Physical Therapy Time Total Therapy 13 Minutes Total Physical 1 Therapy Units Summary Daily Note Summary Cont to require maxA for bed mobility and transfers. Possible transfer to [place] today pending bed availability.
--- NOTE | 2024-06-15 10:34 | PM.DS1 ---
DS: Providers Provider Date of admission: 06/12/24 18:29 Primary care physician: Non-Staff Physician, Admitting clinician: Luis Hastings Attending physician on admission: Luis Hastings Consults: 06/12/24 18:07 Consult to Pharmacy Routine Consulting Provider: Reason for consultation: Please [place] me when Med Rec is Updated Has provider been notified: No Occupational Therapy Eval and Treat Routine Reason for consultation: Only if needed for Rehab Has provider been notified: No Physical Therapy Eval and Treat Routine Reason for consultation: Eval and Treat Has provider been notified: No 06/13/24 12:48 Consult to TeleNeurology Routine Reason for consultation: B/l LE weakness, hx of HIV. Attending physician on discharge: Shaikh Deb Discharging clinician: Shaikh Deb Anticipated date of discharge: 06/15/24 DS: Diagnosis Discharge Diagnosis (1) AIDP (acute inflammatory demyelinating polyneuropathy): Assessment and plan: Patient presents with progressive bilateral lower extremity weakness that is more or less symmetrical. 3 to 4 weeks ago, she was ambulatory and uses a walker. She is now more or less bedbound. Patient seen by teleneurology and recommended transfer to [facility] for neurological workup. Suspected AIDP. MRI cervical and thoracic spine were ordered but not done. (2) Right lower lobe pneumonia: Assessment and plan: Was treated with IV Levaquin. Switched to p.o. Levaquin. Large last day of antibiotic 11/19/2024 Qualifiers: Pneumonia type: due to unspecified organism Qualified Code(s): J18.9 - Pneumonia, unspecified organism (3) Asthma: Assessment and plan: Was on IV steroids and DuoNebs. Switch to p.o. prednisone. Continue with DuoNebs. Qualifiers: Asthma complication type: with acute exacerbation Asthma persistence: intermittent Asthma severity: unspecified severity Qualified Code(s): J45.21 - Mild intermittent asthma with (acute) exacerbation (4) Mild dehydration: Assessment and plan: Resolved. (5) Generalized weakness: Assessment and plan: Bilateral lower extremity weakness with suspicion of AIDP. Awaiting transfer to [facility]. (6) Frequent falls: Assessment and plan: PT/OT evaluation. Will likely need intermediate facility once medically stable (7) HTN (hypertension): Assessment and plan: Stable blood pressure. Continue medications. Qualifiers: Hypertension type: primary hypertension Qualified Code(s): I10 - Essential (primary) hypertension (8) HIV (human immunodeficiency virus infection): Assessment and plan: On Triumeq. Viral load undetectable based on labs 2 months ago. Qualifiers: HIV symptom status: unspecified Qualified Code(s): Z21 - Asymptomatic human immunodeficiency virus [HIV] infection status (9) Peripheral neuropathy: Assessment and plan: Switch to Lyrica. Patient feels that her pain is better as gabapentin did not work for her. Qualifiers: Peripheral neuropathy type: polyneuropathy, unspecified Qualified Code(s): G62.9 - Polyneuropathy, unspecified DS: Summary Hospital Course Hospital Course: 69-year-old female with history of HIV currently on ART, essential hypertension, asthma presented to ED with frequent falls, inability to ambulate along with shortness of breath/wheezing. Workup in ED was consistent with left lower lobe pneumonia and asthma exacerbation. According to the patient she was able to ambulate using a walker a few weeks ago but has had progressive decline in her functional status and inability to walk to the point where she can barely move her legs and is more or less bedbound. Patient was treated with IV Levaquin and systemic steroids along with DuoNebs for pneumonia and asthma exacerbation. She did not require supplemental oxygen. Her respiratory symptoms improved and she was switched to p.o. Levaquin and prednisone along with DuoNebs as needed. However there was no improvement in her neurological symptoms. She was seen by teleneurology who recommended MRI cervical and thoracic spine that were ordered but could not be done due to weekend and scheduling conflicts. Patient was recommended to be transferred to [facility] for neurological evaluation as she was suspected to have AIDP. Patient accepted for transfer under hospitalist service with neurology on consult. This was discussed with patient and his daughter. Patient is medically stable for transfer. Her last day of oral antibiotic would be 06/19/2024. She is currently on prednisone 40 mg that can be discontinued as long as she continues to improve from respiratory point of view on 06/19/2024 also. Status at Discharge Overall status at discharge: patient is not back to baseline Time Spent with Patient Time attestation: Total time spent providing and/or coordinating discharge services: Time spent: greater than 30 minutes Exam Constitutional Vital Signs, click to edit/add: Last Vital Signs Temp 97.5 F L 06/15/24 06:00 Pulse 67 06/15/24 09:52 Resp 15 06/15/24 06:00 BP 110/62 06/15/24 06:00 Pulse Ox 94 L 06/15/24 06:00 O2 Del Method Room Air 06/15/24 06:00 Documenting provider has reviewed patient's vital signs: yes Common normals: no apparent distress and oriented x3 General appearance: cooperative Respiratory Common normals: normal respiratory effort and no use of accessory muscles Effort & inspection: able to speak in complete sentences Auscultation: clear to auscultation bilaterally Cardio Common normals: regular rate, S1 normal heart sound and S2 normal heart sound Rate: regular rate Heart sounds: S1 normal and S2 normal Extremity Common normals: no clubbing, cyanosis or edema Neuro Common normals: oriented x3 and moves all extremities Other: Patient with b/l LE weakness, unable to lift her feet up against gravity. Psych Common normals: mental status grossly normal, denies hallucinations, denies homicidal ideation and denies suicidal ideation DS: Data Data Completed and Pending Labs on day of discharge: Labs from last 24 hours 06/15/24 06/14/24 05:39 06:15 WBC 5.0 RBC 3.84 L Hgb 10.7 L Hct 33.7 L MCV 87.8 MCH 27.9 MCHC 31.8 RDW 17.2 H Plt Count 175 MPV 10.9 Neut % (Auto) 53.8 Lymph % (Auto) 41.2 [place] % (Auto) 4.2 Eos % (Auto) 0.2 L Baso % (Auto) 0.0 L Neut # (Auto) 2.7 Lymph # (Auto) 2.1 [place] # (Auto) 0.2 L Eos # (Auto) 0.0 Baso # (Auto) 0.0 Abs Immat Gran (auto) 0.03 Imm/Tot Granulo (auto) 0.6 H Sodium 139 Potassium 4.2 Chloride 105 Carbon Dioxide 25.1 Anion Gap 13.1 BUN 25.0 H Creatinine 0.62 Est GFR ( Amer) >60 Est GFR (Non-Af Amer) >60 BUN/Creatinine Ratio 40.3 Glucose 159 H Calcium 9.8 Folate 9.00 Preliminary micro results at discharge 06/12/24 18:28 Blood Culture Result 2 - Preliminary Blood NO GROWTH AT 36-48 HOURS. FINAL TO FOLLOW. 06/12/24 18:20 Blood Culture Result 1 - Preliminary Blood NO GROWTH AT 36-48 HOURS. FINAL TO FOLLOW. Discharge Plan Discharge Disposition: [facility] Condition: Good Discharge Location: [facility]
--- NOTE | 2024-06-15 10:45 | CM.NOTE ---
Rounds made with Dr. Boyd. Dr. Boyd reviews plan of care with Janice and need for transfer to Tertiary Facility for further testing. Janice verbalizes understanding.
--- NOTE | 2024-06-15 11:56 | SWNOTE1 ---
SW spoke to nurse and pt would like to speak with SW. SW went in room and pt had questions in regards to her Medicaid and other services. Pt spoke about being on Passport in the past, but was on a different program in [place]. She asked SW if SW had information on passport and would like to get on that service now. SW to make a phone call, as pt has already made phone calls to [facility] Office on Aging. SW also recommended that pt switch her Medicaid over to [facility]. Pt is moving permanently with her daughter in [place]. Pt stated she has left voicemails for [employer] as well. SW to call for pt as well to see if SW can get information on how pt can apply or move her Medicaid over. Pt is aware of the services Passport offers and is just trying to get things all set for her to be staying with her daughter. She stated her daughter is going to be moving her stuff out of her apartment this weekend.
[2024-06-15 12:08] LABS: Vitamin B12 414 pg/mL (232-1245)
--- NOTE | 2024-06-15 14:20 | SWNOTE1 ---
GYPSY called [employer] with pt. GYPSY had to leave a message as it sent SW to [employer]. [facility], which directed [facility] and [facility]. SW was able to input pt's information and it did get message stating as of 06/13/24 her coverage was for [facility] and she got $239.00 per month for food asssitance. SW pt phone on speaker for pt to listen to. GYPSY advised pt that GYPSY will let pt know if [facility] office on Aging, [facility], calls SW back. GYPSY gave pt phone numbers for [facility], [facility], and [facility] on Aging phone numbers.
== END 2024-06-15 18:23 | disposition short-term general hospital (02) | DRG 43 ==
LOC: ER 17:33 → MS 06-13 08:44
PROVIDERS: Physician Assistant; Admitting Provider Family Medicine; Emergency Provider Emergency Medicine; Visit Provider Internal Medicine
DX: G61.0 Guillain-Barre syndrome (principal); J18.9 Pneumonia, unspecified organism; J45.21 Mild intermittent asthma with (acute) exacerbation; E86.0 Dehydration; I10 Essential (primary) hypertension; Z21 Asymptomatic human immunodeficiency virus [HIV] infection status; R29.6 Repeated falls; E78.00 Pure hypercholesterolemia, unspecified; K21.9 Gastro-esophageal reflux disease without esophagitis; Z74.01 Bed confinement status; Z79.82 Long term (current) use of aspirin; Z88.2 Allergy status to sulfonamides; Z79.899 Other long term (current) drug therapy
CPT/HCPCS: 36415; 70450; 71045; 72131; 72192; 73552; 73590; 73620; 80048; 80053; 81001; 82607; 82746; 82800; 83605; 83735; 83880; 84443; 84484; 85025; 85610; 87040; 87070; 87205; 87804; 87811; 93005; 94640; 94667; 94668; 94761; 97110; 97161; 97165; 97535; 99285; J1100; J2919